=== PATIENT | female | born 1995 | race Hispanic/Latino ===

== ENCOUNTER 2024-10-30 21:17 | Emergency (ER) | payer SELFPAY ==
--- NOTE | 2024-10-30 21:32 | EDPHYS ---
Physician Documentation [facility] Name: Rajwinder Gonzalez Age: 29 yrs Sex: Female : 1995 Arrival Date: 10/30/2024 Time: 21:17 Bed 1 Private MD: ED Physician Rufino Bustamante HPI: 10/30 21:25 This 29 yrs old Female presents to ER via Ambulatory with complaints of Term sp4 Labor. 21:25 29-year-old female G1, P0 EGA 40 weeks 0 days by estimated delivery date, estimated sp4 delivery date 10/30/2024, established care at [facility], presents with pelvic contractions starting at 5 PM today now occurring at every 10-minute interval. Patient denied a leak of amniotic fluid and denied bloody show. 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 - Infectious Disease History:: Denies. - Social history:: Smoking status: Patient denies any tobacco usage or history of. - Family history:: not pertinent. ROS: 21:25 Constitutional: Negative for fever, chills, and weight loss, positive for pelvic sp4 contractions, 21:25 All other systems are negative, Exam: 21:25 Constitutional: This is a well developed, well nourished patient who is awake, alert, sp4 and in no acute distress. Head/Face: Normocephalic, atraumatic. Eyes: Pupils equal round and reactive to light, extra-ocular motions intact. Lids and lashes normal. Conjunctiva and sclera are not injected. Cornea within normal limits. Periorbital areas with no swelling, redness, or edema. ENT: Nares patent. No nasal discharge, no septal abnormalities noted. Tympanic membranes are normal and external auditory canals are clear. Oropharynx with no redness, swelling, or masses, exudates, or evidence of obstruction, uvula midline. Mucous membranes moist. Neck: Trachea midline, no thyromegaly or masses palpated, and no cervical lymphadenopathy. Supple, full range of motion without nuchal rigidity, or vertebral point tenderness. Chest/axilla: Normal chest wall appearance and motion. Nontender with no deformity. No lesions are appreciated. Cardiovascular: Regular rate and rhythm with a normal S1 and S2. No gallops, murmurs, or rubs. Normal PMI, no JVD. No pulse deficits. Respiratory: Lungs have equal breath sounds bilaterally, clear to auscultation and percussion. No rales, rhonchi or wheezes noted. No increased work of breathing, no retractions or nasal flaring. Abdomen/GI: Soft, with normal bowel sounds. No distension or tympany. No guarding or rebound. No evidence of tenderness throughout. Gravid uterus Back: No spinal tenderness. No costovertebral tenderness. Pelvic Exam: Normal external genitalia. Gloved cervix exam reveals some effacement with no cervical dilation. No sign of amniotic fluid leak, no bleeding Skin: Warm, dry with normal turgor. Normal color with no rashes, no lesions, and no evidence of cellulitis. MS/ Extremity: Pulses equal, no cyanosis. Neurovascular intact. Full, normal range of motion. Neuro: Awake and alert, GCS 15, oriented to person, place, time, and situation. Cranial nerves II-XII grossly intact. Motor strength 5/5 in all extremities. Sensory grossly intact. Psych: Awake, alert, with orientation to person, place and time. Behavior, mood, and affect are within normal limits Vital Signs: 21:19 BP 144 / 87; Pulse 88; Resp 16; Temp 99.5; Pulse Ox 100% ; Pain 5/10; dd2 22:29 BP 136 / 84; Pulse 85; Resp 16; Temp 98.8; Pulse Ox 100% on R/A; dd2 21:19 Pain Scale: Adult dd2 Molt Coma Score: 21:25 Eye Response: spontaneous(4). Motor Response: obeys commands(6). Verbal Response: sp4 oriented(5). Total: 15. 21:32 Eye Response: spontaneous(4). Motor Response: obeys commands(6). Verbal Response: dd2 oriented(5). Total: 15. MDM: 21:20 Medical Screening Exam initiated sp4 21:32 Differential diagnosis: Juan David cruz, delivery of infant, Labor. Data reviewed: vital sp4 signs, nurses notes, lab test result(s), CBC, electrolytes, radiologic studies, ultrasound. 21:39 ED course: heart tones 140 , single intrauterine in cephalic sp4 presentation at estimated 40 weeks 0 days. Patient warrants emergent transfer to [facility] for assessment by her credit risk management director. 21:48 Consideration of Admission/Observation Escalation of care including sp4 admission/observation considered. ED course: Ultrasound reveals single intrauterine in cephalic presentation heart rate 140 amniotic fluid index 16.8. Otherwise ultrasound is unremarkable. Patient was discussed with Dr. Lopez at [facility] and accepted for transfer out to L and D triage. . 10/30 21:20 Order name: CBC with Diff sp4 10/30 21:20 Order name: CMP sp4 10/30 21:23 Order name: OB Limited EDMS 10/30 21:20 Order name: IV Saline Lock; Complete Time: 21:32 sp4 10/30 21:20 Order name: Labs collected and sent; Complete Time: 21:32 sp4 10/30 21:20 Order name: NPO; Complete Time: 21:39 sp4 Administered Medications: 22:01 Drug: NS 0.9% IV 1000 ml IV at 1 bolus Per protocol; to be given as a bolus over 60 dd2 minutes Route: IV; Rate: 1 bolus; Site: left forearm; 22:29 Follow up: IV Status: Infusion continued upon transfer dd2 Disposition Summary: 10/30/24 21:31 Transfer Ordered Notes: Transfer Location: [facility] sp4 Reason: Higher level of care sp4 Condition: Stable sp4 Problem: new sp4 Symptoms: have improved sp4 Accepting Physician: [facility] attending credit risk management director(10/30/24 22:34) dd2 Diagnosis - Early stage of labor, pelvic contractions, at 40 weeks 0 days EGA sp4 Forms: - Medication Reconciliation Form sp4 - SBAR form sp4 Signatures: Dispatcher [employer] EDRufino Aaron MD MD sp4 SHANNON HIRSCH RN RN dd2 Corrections: (The following items were deleted from the chart) 21:21 21:20 OB Complete+US.RAD.BRZ ordered. EDMA EDMS 22:34 21:31 [facility] attending credit risk management director sp4 dd2
--- NOTE | 2024-10-30 21:32 | ER ---
Nurse's Notes [facility] Name: Rajwinder Gonzalez Age: 29 yrs Sex: Female : 1995 Arrival Date: 10/30/2024 Time: 21:17 Bed 1 Private MD: Diagnosis: Early stage of labor, pelvic contractions, at 40 weeks 0 days EGA Presentation: 10/30 21:19 Chief complaint: Patient states: CONTRACTIONS BEGINNING THIS MORNING AND APPROX 8 MINS dd2 APART. PT REPORTS 40 WEEKS WITH FIRST BABY. DENIES WATER BREAK. Coronavirus screen: At this time, the client does not indicate any symptoms associated with coronavirus-19. Ebola Screen: No symptoms or risks identified at this time. Initial Sepsis Screen: Does the patient meet any 2 criteria? No. Patient's initial sepsis screen is negative. Does the patient have a suspected source of infection? No. Patient's initial sepsis screen is negative. Risk Assessment: Do you want to hurt yourself or someone else? Patient reports no desire to harm self or others. Onset of symptoms was October 30, 2024. 21:19 Method Of Arrival: Ambulatory dd2 21:19 Acuity: VIKAS 3 dd2 Triage Assessment: 21:24 General: Appears in no apparent distress. Behavior is calm, cooperative, appropriate dd2 for age. Pain: Complains of pain in low back area Pain radiates to suprapubic area Pain currently is 5 out of 10 on a pain scale. Quality of pain is described as crampy, pressure. EENT: No deficits noted. No signs and/or symptoms were reported regarding the EENT system. Neuro: No deficits noted. Guzman Agitation-Sedation Scale (RASS): 0 - Alert and Calm Level of Consciousness is awake, alert, obeys commands, Oriented to person, place, time, situation, Appropriate for age. Cardiovascular: No deficits noted. Patient's skin is warm and dry. Respiratory: Airway is patent Respiratory effort is even, unlabored, Respiratory pattern is regular, symmetrical, Breath sounds are clear bilaterally. GI: Abdomen is flat, Bowel sounds present X 4 quads. Abd is non tender X 4 quads. : Reports cramping, in bilateral lower back SUPRAPUBIC PT STATES 40 WEEKS . Derm: No deficits noted. No signs and/or symptoms reported regarding the dermatologic system. Musculoskeletal: No deficits noted. No signs and/or symptoms reported regarding the musculoskeletal system. Circulation, motion, and sensation intact. Range of motion: intact in all extremities. 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 - Infectious Disease History:: Denies. - Social history:: Smoking status: Patient denies any tobacco usage or history of. - Family history:: not pertinent. Screenin:32 [facility] ED Fall Risk Assessment (Adult) History of falling in the last 3 months, dd2 including since admission No falls in past 3 months (0 pts) Confusion or Disorientation No (0 pts) Intoxicated or Sedated No (0 pts) Impaired Gait No (0 pts) Mobility Assist Device Used No (0 pt) Altered Elimination No (0 pt) Score/Fall Risk Level 0 - 2 = Low Risk Oriented to surroundings, Maintained a safe environment, Educated pt \T\ family on fall prevention, incl call for assistance when getting out of bed, Assessed \T\ reinforced patient's understanding of fall precautions, Hourly rounding (assess needs \T\ fall precautionary measures) done. Abuse screen: Denies threats or abuse. Denies injuries from another. Nutritional screening: No deficits noted. Tuberculosis screening: No symptoms or risk factors identified. Assessment: 21:32 Obstetrical Assessment: General assessment: awake and alert, Rupture of membranes dd2 noted. Contractions began 12 hours ago, are Q 8 MINS. lasting 1 minute, Patient reports abdominal cramping, back pain. Reassessment: SEE TRIAGE ASSESSMENT FOR FULL ASSESSMENT. 22:00 Reassessment: report given to CHRISTIE Figueredo. ha1 Vital Signs: 21:19 BP 144 / 87; Pulse 88; Resp 16; Temp 99.5; Pulse Ox 100% ; Pain 5/10; dd2 22:29 BP 136 / 84; Pulse 85; Resp 16; Temp 98.8; Pulse Ox 100% on R/A; dd2 21:19 Pain Scale: Adult dd2 Vitals: 22:00 Heart Tones 140 confirmed by ultrasound . ha1 Quincy Coma Score: 21:25 Eye Response: spontaneous(4). Motor Response: obeys commands(6). Verbal Response: sp4 oriented(5). Total: 15. 21:32 Eye Response: spontaneous(4). Motor Response: obeys commands(6). Verbal Response: dd2 oriented(5). Total: 15. ED Course: 21:18 Patient arrived in ED. gm2 21:18 SHANNON HIRSCH RN is Primary Nurse. dd2 21:19 Rufino Bustamante MD is Attending Physician. sp4 21:24 Triage completed. dd2 21:24 Arm band placed on right wrist. dd2 21:32 Patient has correct armband on for positive identification. Bed in low position. Call dd2 light in reach. Side rails up X 1. Client placed on continuous cardiac and pulse oximetry monitoring. NIBP monitoring applied. Door closed. Noise minimized. Warm blanket given. Pillow given. Verbal reassurance given. 21:32 CBC with Diff Sent. mm11 21:32 CMP Sent. mm11 21:32 Inserted saline lock: 20 gauge in left forearm, using aseptic technique. Blood mm11 collected. Flushed with 10 mL NS. 21:32 No provider procedures requiring assistance completed. Initial lab(s) drawn, by ED dd2 staff, sent to lab. Patient maintains SpO2 saturation greater than 95% on room air. 21:53 OB Limited In Process Unspecified. EDMS 22:32 Patient transferred, IV remains in place. dd2 22:33 Provided Education on: TRANFER EDUCATION. dd2 23:19 2135-initiated transfer with Pau \Raz\ [facility]. Requesting [facility]. Pt was accepted kmf to [facility] by John Loco \T\[id number]. Admin approval given by Pau Diaz \T\ 2151. [place] [facility] to transfer. Administered Medications: 22:01 Drug: NS 0.9% IV 1000 ml IV at 1 bolus Per protocol; to be given as a bolus over 60 dd2 minutes Route: IV; Rate: 1 bolus; Site: left forearm; 22:29 Follow up: IV Status: Infusion continued upon transfer dd2 Medication: 21:32 VIS not applicable for this client. dd2 Outcome: 21:31 ER care complete, transfer ordered by . sp4 22:32 Transferred by ground EMS to [facility], Transfer form dd2 completed. 22:32 Condition: stable 22:32 Instructed on the need for transfer, 22:34 Patient left the ED. dd2 Signatures: Dispatcher [employer] Tressa Flores RN RN ha1 Rufino Bustamante MD MD sp4 Medina Oconnell gm2 Alesia Gustafson [facility] SHANNON HIRSCH RN RN dd2 kenn alcala mm11
[2024-10-30 21:44] LABS: Absolute Eosinophils 0.1 K/uL (0-0.5); Absolute Lymphocytes (CBC) 2.9 K/uL (0.7-4.9); Absolute Monocytes 0.7 K/uL (0.1-1.3); Absolute Neutrophil 9.4 K/uL (1.8-8.0); Basophils % 0.3 % (0-1.3); Eosinophils % 0.5 % (0-4.4); Hematocrit 39.5 % (36.0-45.0); Hemoglobin 13.2 g/dL (12.0-15.0); Lymphocytes % 22.2 % (15.3-44.8); MCH 29.4 pg (27.0-35.0); MCHC 33.3 g/dL (32.0-36.0); MCV 88.2 fL (80-100); MPV 7.9 fL (7.6-11.3); Monocytes % 5.2 % (3.3-12.3); Neutrophils % 71.8 % (41.7-73.7); Platelets 294 thou/uL (152-406); RBC Red Blood Cell Count 4.48 M/uL (3.86-4.86); Red Cell Distribution Width 14.5 % (12.1-15.2)
[2024-10-30] MEDS ORDERED: NA CHLORIDE 0.9% 1,000 ML ONE (21:49)
[2024-10-30 22:01] LABS: Albumin 2.7 g/dL (3.4-5.0); Albumin/Globulin Ratio 0.6 (1.1-1.8); Anion Gap 11.7 mEq/L (5.0-15.0); Bilirubin Total 0.3 mg/dL (0.2-1.0); Globulin 4.6 g/dL (2.3-3.5); Potassium 3.7 mEq/L (3.5-5.1); Protein, Total 7.3 g/dL (6.4-8.2)
--- NOTE | 2024-10-30 22:37 | RAD REPORT ---
EXAMINATION: US OB Limited COMPARISON: None. HISTORY: [facility] MAIN contractions Bed Name: 1 TECHNIQUE: Real-time ultrasound was performed through the pelvis. Transabdominal scanning only was pe rformed. FINDINGS: There is a single living intrauterine . Fetus in cephalic presentation. Placenta is forming along the left/posterior wall. No findings to suggest placenta previa identified although absence of transvaginal evaluation limits this evaluation. heart rate: 139 BPM Measurements and Calculations: Femur length 73.8 mm, consistent with a sonographic age of 37 weeks, 5 days. The patient's LMP dates are not stated. DAVID: 11.15 cm, within normal range. IMPRESSION: Single living intrauterine , with a composite sonographic age of 37 weeks, 5 days by ultraso und dating.
[2024-10-30 22:41] VITALS: O2SAT 100
[2024-10-30 22:43] VITALS: BP 136/84; TEMP 98.8
== END 2024-10-30 22:34 | disposition short-term general hospital (02) ==
LOC: ER 21:17
DX: O60.03 Preterm labor without delivery, third trimester (principal); Z3A.40 40 weeks gestation of pregnancy
CPT/HCPCS: 36415; 76815; 80053; 85025; 99285; J7030